=== PATIENT | male | born 1950 | race Caucasian/White ===

== ENCOUNTER 2020-05-24 08:28 | Outpatient (REF) | payer OTHER, SELFPAY ==
[2020-05-24 19:48] LABS: HCT 43.4 % (40.0-50.0); HGB 13.8 g/dL (13.5-17.5); MCHC 31.8 % (32.0-36.0); MCV 91.2 fL (80-95); MPV 9.9 fL (8.0-11.0); Platelet Count 357 10^3/uL (130-400); RBC 4.76 10^6/uL (4.36-5.78); RDW 14.9 % (11.8-14.1); RDW-SD 50.4 fL
[2020-05-24 21:06] LABS: Iron 99 ug/dL (65-175); Total Iron Binding Capacity 361 ug/dL (250-450); Transferrin Sat 27 % (20-55)
[2020-05-24 21:19] LABS: Anion Gap 6.6 mmol/L (3-11); BUN 17 mg/dL (7-18); CO2 29.4 mmol/L (21.0-32.0); CREATININE 0.98 mg/dL (0.70-1.30); Calcium 9.1 mg/dL (8.5-10.1); Calculated LDL 174 mg/dL (<100); Chloride 103 mmol/L (98-107); Cholesterol 232 mg/dL (<200); Ferritin 13 ng/mL (26-388); Glucose 91 mg/dL (74-106); HDL Cholesterol 43 mg/dL (40-60); Potassium 4.6 mmol/L (3.5-5.1); Sodium 139 mmol/L (136-145); Triglyceride 78 mg/dL (<150)
== END 2020-05-24 08:48 ==
LOC: NCHCN 08:28
PROVIDERS: PCP Physician Assistant; Visit Provider Nurse Practitioner Family
DX: D64.9 Anemia, unspecified (principal); L11.1 Transient acantholytic dermatosis [Grover]; Z85.828 Personal history of other malignant neoplasm of skin
CPT/HCPCS: 80048; 80061; 85027; 82728; 83540; 83550

== ENCOUNTER 2021-08-22 04:25 | Outpatient (CLI) | payer OTHER, SELFPAY ==
[2021-08-22 07:30] LABS: Abs Immature Grans 0.02 10^3/uL (0.0-0.06); Absolute Basophil Count 0.02 10^3/uL (0.0-0.2); Absolute Eosinophil Count 0.22 10^3/uL (0.0-0.7); Absolute Lymphocyte Count 2.79 10^3/uL (1.2-3.4); Absolute Monocyte Count 0.67 10^3/uL (0.1-0.8); Absolute Neutrophil Count 4.42 10^3/uL (1.2-6.7); Basophils % 0.2; Eosinophils % 2.7; HCT 46.2 % (40.0-50.0); HGB 15.3 g/dL (13.5-17.5); Immature Grans % 0.2; Lymphocytes % 34.3; MCH 30.8 pg (27.0-33.0); MCHC 33.1 % (32.0-36.0); MPV 9.1 fL (8.0-11.0); Monocytes % 8.2; Neutrophils % 54.4; Nucleated RBC 0 %; Platelet Count 262 10^3/uL (130-400); RBC 4.97 10^6/uL (4.36-5.78); RDW 14.5 % (11.8-14.1); RDW-SD 49.9 fL; WBC 8.14 10^3/uL (4.4-10.8)
[2021-08-22 09:22] LABS: ALT 26 U/L (16-63); AST 25 U/L (15-37); Albumin 3.8 g/dL (3.4-5.0); Alkaline Phosphatase 62 U/L (46-116); Anion Gap 8.2 mmol/L (3-11); BUN 17 mg/dL (7-18); Bilirubin, Total 0.6 mg/dL (0.2-1.0); CO2 28.8 mmol/L (21.0-32.0); Calcium 9.4 mg/dL (8.5-10.1); Calculated LDL 184 mg/dL (<100); Chloride 101 mmol/L (98-107); Cholesterol 251 mg/dL (<200); Ferritin 39 ng/mL (26-388); Folate 11.3 ng/mL (8.6-20.0); Glucose 101 mg/dL (74-106); HDL Cholesterol 51 mg/dL (40-60); Potassium 4.8 mmol/L (3.5-5.1); Sodium 138 mmol/L (136-145); Total Protein 7.6 g/dL (6.4-8.2); Triglyceride 80 mg/dL (<150); Vitamin B12 604 pg/mL (193-986)
[2021-08-22 17:48] LABS: PSA, Screening 1.4 ng/mL (0.0-6.5)
== END 2021-08-22 04:26 | disposition home or self-care (01) ==
PROVIDERS: PCP Physician Assistant; Visit Provider Naturopath
DX: Z00.00 Encounter for general adult medical examination without abnormal findings (principal); D64.9 Anemia, unspecified; Z12.5 Encounter for screening for malignant neoplasm of prostate
CPT/HCPCS: 36415; 80053; 80061; 84153; 82607; 82728; 82746; 85025

== ENCOUNTER 2022-03-07 03:58 | Outpatient (CLI) | payer OTHER, SELFPAY ==
[2022-03-07 14:34] LABS: Calculated LDL 125 mg/dL (<100); Cholesterol 195 mg/dL (<200); HDL Cholesterol 53 mg/dL (40-60); Triglyceride 89 mg/dL (<150)
== END 2022-03-07 03:59 | disposition home or self-care (01) ==
LOC: LBO 03:59
PROVIDERS: PCP Physician Assistant; Visit Provider Naturopath
DX: E78.00 Pure hypercholesterolemia, unspecified (principal)
CPT/HCPCS: 36415; 80061